=== PATIENT | female | born 1960 | race Two or more races ===

== ENCOUNTER 2017-07-12 17:22 | Inpatient (IN) | payer MEDICARE, MEDICAID ==
[~2017-07-12] VITALS: Ht 162.6 cm; Wt 67.1 kg
[2017-07-12] MEDS ORDERED: MULT1TAB73 PO (18:30)
[2017-07-12] MEDS ORDERED: HYDR200T PO (18:30)
[2017-07-12] MEDS ORDERED: PRAV40TA3 PO (18:30)
[2017-07-12] MEDS ORDERED: FOLI1TAB16 PO (18:30)
[2017-07-12] MEDS ORDERED: CHOL500062 PO (18:30)
[2017-07-12] MEDS ORDERED: DOCU-141 PO (18:30)
[2017-07-12] MEDS ORDERED: CLOP75TA15 PO (18:30)
[2017-07-12] MEDS ORDERED: LEVE500T9 PO (18:30)
[2017-07-12] MEDS ORDERED: WARF1TAB2 (18:30)
[2017-07-12] MEDS ORDERED: ACET325T53 PO (18:30)
[2017-07-12] MEDS ORDERED: NA P133E RC (18:30)
[2017-07-12] MEDS ORDERED: CALC500T3 PO (18:30)
[2017-07-12] MEDS ORDERED: MAGN400O6 PO (18:30)
[2017-07-12] MEDS ORDERED: MIDO10TA PO (18:30)
[2017-07-12] MEDS ORDERED: BISA10SU12 RC (18:30)
[2017-07-12 20:07] LABS: BASOPHILS % (AUTO) 1.9 % (0.0-2.0); EOSINOPHILS % (AUTO) 0.6 % (0.0-7.0); HEMATOCRIT 35.9 % (31.2-41.9); HEMOGLOBIN 12.2 g/dL (10.9-14.3); LYMPHOCYTES # (AUTO) 0.6 K/uL (20.0-40.0); LYMPHOCYTES % (AUTO) 45.7 % (20.5-51.5); MEAN CORPUSCULAR HEMOGLOBIN 29.7 uug (24.7-32.8); MEAN CORPUSCULAR HGB CONC 34 g/dL (32.3-35.6); MONOCYTES # (AUTO) 0.2 K/uL (2.0-10.0); MONOCYTES % (AUTO) 16.2 % (0.0-11.0); NEUTROPHILS # (AUTO) 0.5 K/uL (1.8-8.9); NEUTROPHILS % (AUTO) 35.6 % (38.5-71.5); PLATELET COUNT (AUTO) 145 K/uL (179-408); RED BLOOD CELL COUNT(AUTO) 4.13 MIL/uL (3.63-4.92)
[2017-07-12 20:17] LABS: WHITE BLOOD COUNT (AUTO) 1.4 K/uL (3.8-11.8)
[2017-07-12 20:19] LABS: ABG BASE EXCESS 1.3 mmol/L; ABG HCO3 26.5 mmol/L; ABG PCO2 43.8 mmHg (35.0-45.0); ABG PH 7.399 (7.350-7.450); ABG PO2 72.2 mmHg (75.0-100.0); ABG SITE LEFT BRACHIAL; ABG TOTAL HEMOGLOBIN 12.8 G/dL (12.0-16.0); MetHb 0.3 % (0.0-1.5); O2Hb 91.7 % (94.0-97.0); VENT MODE ROOM AIR
[2017-07-12 20:22] LABS: CREATININE 1.1 mg/dL (0.6-1.3); POTASSIUM 3.6 mmol/L (3.5-5.1)
[2017-07-12 20:34] LABS: BILIRUBIN,DIRECT 0.1 mg/dL (0.0-0.2); BILIRUBIN,TOTAL 0.5 mg/dL (0.2-1.0); TOTAL PROTEIN, SERUM 7.4 g/dL (6.4-8.2)
[2017-07-12 21:02] LABS: LYMPHOCYTES % (MANUAL) 43 % (20-40); MONOCYTES % (MANUAL) 12 % (2-10); NEUTROPHILS % (MANUAL) 45 % (42-75)
[2017-07-12] MEDS ORDERED: AZITHROMYCIN 250 MG TABLET PO ONE (21:30)
[2017-07-12] MEDS ORDERED: CEFTRIAXONE 1 G in IV DEXTROSE 5% 50 ML IV ONE (21:30)
[2017-07-12] MEDS ORDERED: AZITHROMYCIN 250 MG TABLET ONE (21:46)
[2017-07-12] MEDS ORDERED: CEFTRIAXONE 1 G VIAL ONE ×2 (21:47→21:50)
[2017-07-12 23:00] VITALS: BP 118/77
[2017-07-12] MEDS ORDERED: BISACODYL 10 MG SUPP.RECT RC PRN (23:00)
[2017-07-12] MEDS ORDERED: HYDROCODONE/APAP 5-325MG TABLET PO PRN (23:15)
[2017-07-12] MEDS ORDERED: Z GUARD REMEDY PASTE 57 GM TUBE TOP PRN (23:15)
[2017-07-12] MEDS ORDERED: ONDANSETRON 4 MG/2 ML VIAL IV PRN (23:15)
[2017-07-12] MEDS ORDERED: ACETAMINOPHEN 325 MG TABLET PO PRN (23:15)
[2017-07-12] MEDS ORDERED: ZOLPIDEM 5 MG TABLET PO PRN (23:15)
[2017-07-12] MEDS ORDERED: FUROSEMIDE 20 MG/2 ML VIAL IV ONE (23:15)
[2017-07-13] VITALS: BP 118/77
[2017-07-13 04:00] VITALS: BP 102/64
[2017-07-13] MEDS ORDERED: LEVETIRACETAM 500 MG TABLET ONE (04:41)
[2017-07-13] MEDS ORDERED: FUROSEMIDE 20 MG/2 ML VIAL ONE (04:41)
[2017-07-13] MEDS: LEVETIRACETAM 500 MG TABLET PO SCH ×3 (04:46→17:03)
[2017-07-13 06:34] LABS: BASOPHILS % (AUTO) 1.8 % (0.0-2.0); HEMATOCRIT 37.6 % (31.2-41.9); HEMOGLOBIN 12.7 g/dL (10.9-14.3); LYMPHOCYTES # (AUTO) 0.5 K/uL (20.0-40.0); LYMPHOCYTES % (AUTO) 43.9 % (20.5-51.5); MEAN CORPUSCULAR HEMOGLOBIN 29.4 uug (24.7-32.8); MEAN CORPUSCULAR HGB CONC 34 g/dL (32.3-35.6); MEAN CORPUSCULAR VOLUME 86.8 fL (75.5-95.3); MONOCYTES # (AUTO) 0.2 K/uL (2.0-10.0); MONOCYTES % (AUTO) 18.4 % (0.0-11.0); NEUTROPHILS # (AUTO) 0.4 K/uL (1.8-8.9); NEUTROPHILS % (AUTO) 34.9 % (38.5-71.5); PLATELET COUNT (AUTO) 135 K/uL (179-408); RED BLOOD CELL COUNT(AUTO) 4.33 MIL/uL (3.63-4.92)
[2017-07-13 06:46] LABS: MAGNESIUM 1.8 mg/dL (1.8-2.4); PHOSPHOROUS 4.1 mg/dL (2.5-4.9); POTASSIUM 3.8 mmol/L (3.5-5.1)
[2017-07-13 07:00] LABS: WHITE BLOOD COUNT (AUTO) 1.1 K/uL (3.8-11.8)
[2017-07-13] MEDS: FOLIC ACID 1 MG TABLET PO SCH (08:44)
[2017-07-13] MEDS: MULTIVITAMINS,THERAPEUTIC TABLET PO SCH (08:44)
[2017-07-13] MEDS: CALCIUM CARBONATE 500 MG TABLET PO SCH (08:44)
[2017-07-13] MEDS: HYDROXYCHLOROQUINE SULFATE 200 MG TABLET PO SCH ×2 (08:51→17:03)
[2017-07-13] MEDS ORDERED: Medication Not On Formulary EA (Cholecalciferol (Vitamin D3) (Vitamin D3) 5,000 UNIT) PO SCH (09:00)
[2017-07-13] MEDS ORDERED: Medication Not On Formulary EA (Multivitamins (Multivitamin) 1 EACH) PO SCH (09:00)
[2017-07-13] MEDS ORDERED: Medication Not On Formulary EA (Midodrine Hcl 10 MG) PO SCH (09:00)
[2017-07-13 09:52] LABS: BAND % (MANUAL) 2 % (0-10); LYMPHOCYTES % (MANUAL) 48 % (20-40); MONOCYTES % (MANUAL) 16 % (2-10); NEUTROPHILS % (MANUAL) 34 % (42-75)
[2017-07-13] MEDS: CLOPIDOGREL 75 MG TABLET PO SCH (10:36)
[2017-07-13] MEDS: CHOLECALCIFEROL 1,000 UNIT TABLET PO SCH (10:36)
[2017-07-13 11:34] VITALS: BP 104/66
[2017-07-13] MEDS: MIDODRINE HCL 5 MG TABLET PO SCH ×2 (13:46→22:58)
[2017-07-13 15:29] VITALS: BP 101/62
[2017-07-13] MEDS ORDERED: WARFARIN SODIUM 4 MG TABLET PO SCH (17:00)
[2017-07-13 20:12] VITALS: BP 105/65
[2017-07-13] MEDS: DOCUSATE SODIUM 100 MG CAPSULE PO SCH (21:34)
[2017-07-14] MEDS: MIDODRINE HCL 5 MG TABLET PO SCH ×3 (06:00→21:04)
[2017-07-14 06:26] VITALS: BP 112/68
[2017-07-14] MEDS: CLOPIDOGREL 75 MG TABLET PO SCH (09:00)
[2017-07-14] MEDS: LEVETIRACETAM 500 MG TABLET PO SCH ×2 (09:02→17:30)
[2017-07-14] MEDS: FOLIC ACID 1 MG TABLET PO SCH (09:02)
[2017-07-14] MEDS: HYDROXYCHLOROQUINE SULFATE 200 MG TABLET PO SCH ×2 (09:03→17:30)
[2017-07-14] MEDS: MULTIVITAMINS,THERAPEUTIC TABLET PO SCH (09:03)
[2017-07-14] MEDS: CALCIUM CARBONATE 500 MG TABLET PO SCH (09:03)
[2017-07-14] MEDS: CHOLECALCIFEROL 1,000 UNIT TABLET PO SCH (09:04)
[2017-07-14] MEDS: ATORVASTATIN 10 MG TABLET PO SCH (09:20)
[2017-07-14 11:59] VITALS: BP 114/80
[2017-07-14 15:53] VITALS: BP 105/67
[2017-07-14 20:00] VITALS: BP 111/68
[2017-07-14] MEDS: DOCUSATE SODIUM 100 MG CAPSULE PO SCH (20:13)
[2017-07-15] MEDS: MIDODRINE HCL 5 MG TABLET PO SCH ×3 (05:07→21:04)
[2017-07-15 05:13] VITALS: BP 122/53
[2017-07-15 06:09] LABS: BASOPHILS % (AUTO) 1.5 % (0.0-2.0); EOSINOPHILS % (AUTO) 0.8 % (0.0-7.0); HEMATOCRIT 38.4 % (31.2-41.9); HEMOGLOBIN 12.8 g/dL (10.9-14.3); LYMPHOCYTES # (AUTO) 0.5 K/uL (20.0-40.0); LYMPHOCYTES % (AUTO) 38.1 % (20.5-51.5); MEAN CORPUSCULAR HEMOGLOBIN 29.2 uug (24.7-32.8); MEAN CORPUSCULAR HGB CONC 33 g/dL (32.3-35.6); MEAN CORPUSCULAR VOLUME 88.1 fL (75.5-95.3); MONOCYTES # (AUTO) 0.2 K/uL (2.0-10.0); MONOCYTES % (AUTO) 18.7 % (0.0-11.0); NEUTROPHILS # (AUTO) 0.5 K/uL (1.8-8.9); NEUTROPHILS % (AUTO) 40.9 % (38.5-71.5); PLATELET COUNT (AUTO) 136 K/uL (179-408); RED BLOOD CELL COUNT(AUTO) 4.37 MIL/uL (3.63-4.92)
[2017-07-15 06:24] LABS: CREATININE 1.1 mg/dL (0.6-1.3); POTASSIUM 3.7 mmol/L (3.5-5.1); WHITE BLOOD COUNT (AUTO) 1.3 K/uL (3.8-11.8)
[2017-07-15 07:49] LABS: BAND % (MANUAL) 14 % (0-10); LYMPHOCYTES % (MANUAL) 40 % (20-40); MONOCYTES % (MANUAL) 24 % (2-10); NEUTROPHILS % (MANUAL) 22 % (42-75)
[2017-07-15] MEDS: MULTIVITAMINS,THERAPEUTIC TABLET PO SCH (08:41)
[2017-07-15] MEDS: CALCIUM CARBONATE 500 MG TABLET PO SCH (08:41)
[2017-07-15] MEDS: FOLIC ACID 1 MG TABLET PO SCH (08:41)
[2017-07-15] MEDS: LEVETIRACETAM 500 MG TABLET PO SCH ×2 (08:41→17:40)
[2017-07-15] MEDS: CLOPIDOGREL 75 MG TABLET PO SCH (08:42)
[2017-07-15] MEDS: CHOLECALCIFEROL 1,000 UNIT TABLET PO SCH (08:42)
[2017-07-15] MEDS: HYDROXYCHLOROQUINE SULFATE 200 MG TABLET PO SCH ×2 (11:21→17:40)
[2017-07-15 11:40] VITALS: BP_SYST 105; BP_SYST 15; BP_DIAS 66
[2017-07-15] MEDS ORDERED: Z GUARD REMEDY PASTE 57 GM TUBE TOP PRN (15:30)
[2017-07-15 15:35] VITALS: BP 104/67
[2017-07-15] MEDS ORDERED: WARFARIN SODIUM 5 MG TABLET PO SCH (17:00)
[2017-07-15] MEDS ORDERED: WARFARIN SODIUM 4 MG TABLET PO SCH (17:00)
[2017-07-15 19:10] VITALS: BP 101/60
[2017-07-15] MEDS: DOCUSATE SODIUM 100 MG CAPSULE PO SCH (21:03)
[2017-07-16 04:00] VITALS: BP 108/69
[2017-07-16] MEDS: MIDODRINE HCL 5 MG TABLET PO SCH (05:23)
[2017-07-16 06:34] LABS: EOSINOPHILS % (AUTO) 0.8 % (0.0-7.0); HEMATOCRIT 35.9 % (31.2-41.9); HEMOGLOBIN 12.1 g/dL (10.9-14.3); LYMPHOCYTES # (AUTO) 0.5 K/uL (20.0-40.0); LYMPHOCYTES % (AUTO) 47.5 % (20.5-51.5); MEAN CORPUSCULAR HEMOGLOBIN 29.5 uug (24.7-32.8); MEAN CORPUSCULAR HGB CONC 34 g/dL (32.3-35.6); MEAN CORPUSCULAR VOLUME 87.4 fL (75.5-95.3); MONOCYTES # (AUTO) 0.2 K/uL (2.0-10.0); MONOCYTES % (AUTO) 20.2 % (0.0-11.0); NEUTROPHILS # (AUTO) 0.3 K/uL (1.8-8.9); NEUTROPHILS % (AUTO) 29.5 % (38.5-71.5); PLATELET COUNT (AUTO) 131 K/uL (179-408); RED BLOOD CELL COUNT(AUTO) 4.11 MIL/uL (3.63-4.92)
[2017-07-16 06:41] LABS: MAGNESIUM 2.1 mg/dL (1.8-2.4); POTASSIUM 4.2 mmol/L (3.5-5.1)
[2017-07-16 06:43] LABS: WHITE BLOOD COUNT (AUTO) 1.1 K/uL (3.8-11.8)
[2017-07-16 09:02] LABS: BAND % (MANUAL) 8 % (0-10); EOSINOPHILS % (MANUAL) 1 % (0-8); LYMPHOCYTES % (MANUAL) 44 % (20-40); MONOCYTES % (MANUAL) 18 % (2-10); NEUTROPHILS % (MANUAL) 29 % (42-75)
[2017-07-16] MEDS: MULTIVITAMINS,THERAPEUTIC TABLET PO SCH (09:40)
[2017-07-16] MEDS: FOLIC ACID 1 MG TABLET PO SCH (09:40)
[2017-07-16] MEDS: CALCIUM CARBONATE 500 MG TABLET PO SCH (09:40)
[2017-07-16] MEDS: LEVETIRACETAM 500 MG TABLET PO SCH (09:40)
[2017-07-16] MEDS: CHOLECALCIFEROL 1,000 UNIT TABLET PO SCH (09:41)
[2017-07-16] MEDS: CLOPIDOGREL 75 MG TABLET PO SCH (09:44)
[2017-07-16] MEDS: ATORVASTATIN 10 MG TABLET PO SCH (09:45)
[2017-07-16] MEDS: HYDROXYCHLOROQUINE SULFATE 200 MG TABLET PO SCH (10:37)
[2017-07-16 11:32] VITALS: BP 100/63
[2017-07-17] MEDS ORDERED: WARFARIN SODIUM 10 MG TABLET PO SCH (17:00)
== END 2017-07-16 11:07 | DRG 193 ==
LOC: ER 17:25 → TELE 22:08 → MED 07-13 09:30
PROVIDERS: ADMIT Nurse Practitioner Acute Care; ATTEND Nurse Practitioner Acute Care
DX: J18.9 Pneumonia, unspecified organism (principal); J96.01 Acute respiratory failure with hypoxia; I50.23 Acute on chronic systolic (congestive) heart failure; G93.41 Metabolic encephalopathy; D70.9 Neutropenia, unspecified; C96.9 Malignant neoplasm of lymphoid, hematopoietic and related tissue, unspecified; I69.351 Hemiplegia and hemiparesis following cerebral infarction affecting right dominant side; D69.6 Thrombocytopenia, unspecified; C80.1 Malignant (primary) neoplasm, unspecified; L93.0 Discoid lupus erythematosus; G40.909 Epilepsy, unspecified, not intractable, without status epilepticus; I69.320 Aphasia following cerebral infarction; I69.390 Apraxia following cerebral infarction; I69.398 Other sequelae of cerebral infarction; Y95 Nosocomial condition; Y92.129 Unspecified place in nursing home as the place of occurrence of the external cause; Z86.718 Personal history of other venous thrombosis and embolism; Z79.02 Long term (current) use of antithrombotics/antiplatelets; Z79.899 Other long term (current) drug therapy; Z79.01 Long term (current) use of anticoagulants; I34.0 Nonrheumatic mitral (valve) insufficiency; D63.0 Anemia in neoplastic disease; C51.9 Malignant neoplasm of vulva, unspecified; I70.0 Atherosclerosis of aorta; X01.1XXA Exposure to smoke in uncontrolled fire, not in building or structure, initial encounter
CPT/HCPCS: 36415; 36600; 70030-TC; 71010; 83605; 83735; 84100; 85025; 85610; 87040; 87086; 92507; 92523; 93005; 93307; 97110; 97530; A4663; C1758; J0696; J1940; J7060; Q0144